=== PATIENT | female | born 1960 | race Caucasian/White ===

== ENCOUNTER 2018-03-07 12:26 | Emergency (ER) | payer OTHER ==
[~2018-03-07] VITALS: Ht 152.4 cm; Wt 80.0 kg
[~2018-03-07 12:26] MED LIST: ALPR-340 PO; AMIO100T4 PO; AMIO200T PO; ATOR20TA65; ATOR20TA65 PO; BENA20TA3 PO; BENA20TA77; CARV6.2548 PO; CLON0.5T PO; CLON1TAB4 PO; COR12 PO; DIGO250T81 PO; FERR325T30 PO; FURO-151 PO; FURO40TA5 PO; GLIP10TA10; GLIP10TA3 PO; IMIP50TA2; IMIP50TA7 PO; INS5050 SUBCUT; INSU100C3 SQ; LANS30CA55; LINA5TAB; LINA5TAB PO; NORG1TAB18 PO; NORG1TAB30 PO; NORT50CA; NORT50CA PO; NORT50CA5 PO; POTA20TA30; POTA20TA82 PO; TRAZ-129 PO; WARF-67; WARF2TAB57 PO
[2018-03-07] MEDS ORDERED: ONDANSETRON HCL 4MG/2ML VIAL IV STA (13:26)
[2018-03-07] MEDS ORDERED: SODIUM CHLORIDE 0.9% 250 ML IV ONE (13:41)
[2018-03-07 14:17] LABS: CLARITY URINE CLEAR (CLEAR); COLOR URINE YELLOW (YELLOW); KETONES URINE NEGATIVE (NEGATIVE); LEUKOCYTE ESTERASE URINE NEGATIVE (NEGATIVE); NITRITE URINE NEGATIVE (NEGATIVE); OCCULT BLOOD URINE NEGATIVE (NEGATIVE); PH URINE 7.5 (4.5-8.0); PROTEIN URINE NEGATIVE (NEGATIVE); SPECIFIC GRAVITY URINE 1.011 (1.005-1.030); UROBILINOGEN URINE 0.2 E.U./dL (0.2-1.0)
[2018-03-07 14:28] LABS: BASOPHILS % 0.3 % (0.0-2.0); HEMOGLOBIN. 11.9 g/dL (12.0-16.0); LYMPHOCYTES % 16.4 % (20.0-50.0); MEAN CORPUSCULAR HEMOGLOBIN 24.5 pg (28.0-32.0); MEAN CORPUSCULAR VOLUME 74.2 fL (81.0-99.0); MONOCYTES % 7.3 % (2.0-8.0); PLATELET 253 x1000/uL (130-400); RED BLOOD CELL COUNT 4.85 mill/uL (4.2-5.4); RED CELL DISTRIBUTION WIDTH 17.2 % (11.6-14.6)
[2018-03-07 14:31] LABS: CHLORIDE 106 mEq/L (98-107); INR 1.4; PROTHROMBIN TIME 14.6 sec (9.4-11.6)
[2018-03-07 14:40] LABS: CREATINE KINASE 45 IU/L (26-192)
[2018-03-07 17:24] VITALS: BP 118/58
== END 2018-03-07 17:25 | disposition home or self-care (01) ==
LOC: ER 12:33 → ENRESERV 14:14 → CANRESERV 14:14 → ER 17:25 → CANBEDREQ 17:58
DX: R53.1 Weakness (principal); E11.9 Type 2 diabetes mellitus without complications; I10 Essential (primary) hypertension; E78.00 Pure hypercholesterolemia, unspecified; Z95.0 Presence of cardiac pacemaker; Z79.4 Long term (current) use of insulin; Z79.01 Long term (current) use of anticoagulants
CPT/HCPCS: 36415; 71045; 80053; 81003; 82550; 83605; 83880; 84484; 85025; 85610; 87040; 87086; 93005; 96360; 96361; 99285; J2405; Z7610; J7050

== ENCOUNTER 2018-05-10 11:12 | Emergency (ER) | payer OTHER ==
[~2018-05-10] VITALS: Ht 154.9 cm; Wt 66.0 kg
[~2018-05-10 11:12] MED LIST changes: -CLON1TAB4 PO; +CLON1TAB5 PO
[2018-05-10 11:25] VITALS: BP 123/55
[2018-05-10 12:48] LABS: BASOPHILS % 0.4 % (0.0-2.0); EOSINOPHILS % 0.1 % (0.0-5.0); HEMATOCRIT. 36.2 % (36.0-48.0); HEMOGLOBIN. 11.8 g/dL (12.0-16.0); MEAN CORPUSCULAR HEMOGLOBIN 24.5 pg (28.0-32.0); MEAN CORPUSCULAR VOLUME 74.9 fL (81.0-99.0); MEAN PLATELET VOLUME 8.3 fl (7.4-10.4); MONOCYTES % 8.8 % (2.0-8.0); NEUTROPHILS % 69.7 % (40.0-76.0); PLATELET 217 x1000/uL (130-400); RED BLOOD CELL COUNT 4.83 mill/uL (4.2-5.4); RED CELL DISTRIBUTION WIDTH 17.6 % (11.6-14.6)
[2018-05-10 12:52] LABS: PROTHROMBIN TIME 20.7 sec (9.4-11.6)
== END 2018-05-10 13:44 | disposition home or self-care (01) ==
LOC: ER 11:12
DX: H60.92 Unspecified otitis externa, left ear (principal); E11.9 Type 2 diabetes mellitus without complications; I10 Essential (primary) hypertension; Z79.899 Other long term (current) drug therapy
CPT/HCPCS: 36415; 85025; 85610; 93005; 99285

== ENCOUNTER 2018-08-27 09:24 | Emergency (ER) | payer OTHER ==
[~2018-08-27] VITALS: Ht 154.9 cm; Wt 77.0 kg
[~2018-08-27 09:24] MED LIST changes: +BENA20TA10 PO; -BENA20TA3 PO; +CLON1TAB12 PO; -CLON1TAB5 PO; -TRAZ-129 PO; +TRAZ-212 PO
[2018-08-27 11:26] LABS: BASOPHILS % 0.6 % (0.0-2.0); HEMATOCRIT. 35.6 % (36.0-48.0); HEMOGLOBIN. 11.7 g/dL (12.0-16.0); LYMPHOCYTES % 21.4 % (20.0-50.0); MEAN CORPUSCULAR HEMOGLOBIN 24.4 pg (28.0-32.0); MEAN CORPUSCULAR VOLUME 74.4 fL (81.0-99.0); MEAN PLATELET VOLUME 8.3 fl (7.4-10.4); MONOCYTES % 7.9 % (2.0-8.0); NEUTROPHILS % 70.1 % (40.0-76.0); PLATELET 217 x1000/uL (130-400); RED BLOOD CELL COUNT 4.78 mill/uL (4.2-5.4); RED CELL DISTRIBUTION WIDTH 17.9 % (11.6-14.6)
[2018-08-27 11:33] LABS: INR 1.8; PROTHROMBIN TIME 17.6 sec (9.1-11.1)
[2018-08-27 11:34] LABS: CHLORIDE 109 mEq/L (98-107)
[2018-08-27 11:40] LABS: CLARITY URINE CLEAR (CLEAR); COLOR URINE YELLOW (YELLOW); KETONES URINE NEGATIVE (NEGATIVE); LEUKOCYTE ESTERASE URINE NEGATIVE (NEGATIVE); NITRITE URINE NEGATIVE (NEGATIVE); OCCULT BLOOD URINE NEGATIVE (NEGATIVE); PROTEIN URINE NEGATIVE (NEGATIVE); SPECIFIC GRAVITY URINE 1.011 (1.005-1.030)
[2018-08-27 15:09] VITALS: BP 116/64
== END 2018-08-27 15:12 | disposition home or self-care (01) ==
LOC: ER 11:14
DX: I10 Essential (primary) hypertension (principal); R53.1 Weakness; R51 Headache; R53.83 Other fatigue; E11.9 Type 2 diabetes mellitus without complications; E78.00 Pure hypercholesterolemia, unspecified; Z98.890 Other specified postprocedural states; Z79.4 Long term (current) use of insulin; Z79.899 Other long term (current) drug therapy
CPT/HCPCS: 36415; 71045; 83735; 83880; 84484; 93005; 99285

== ENCOUNTER 2018-09-03 11:43 | Inpatient (IN) | payer OTHER ==
[~2018-09-03] VITALS: Ht 162.6 cm; Wt 84.8 kg
[2018-09-03 12:40] LABS: BASOPHILS % 0.5 % (0.0-2.0); HEMATOCRIT. 35.5 % (36.0-48.0); HEMOGLOBIN. 11.7 g/dL (12.0-16.0); LYMPHOCYTES % 17.5 % (20.0-50.0); MEAN CORPUSCULAR HEMOGLOBIN 24.5 pg (28.0-32.0); MEAN CORPUSCULAR VOLUME 74.4 fL (81.0-99.0); MEAN PLATELET VOLUME 8.2 fl (7.4-10.4); MONOCYTES % 7.8 % (2.0-8.0); NEUTROPHILS % 74.2 % (40.0-76.0); PLATELET 219 x1000/uL (130-400); RED BLOOD CELL COUNT 4.77 mill/uL (4.2-5.4); RED CELL DISTRIBUTION WIDTH 18.1 % (11.6-14.6)
[2018-09-03 12:48] LABS: CHLORIDE 105 mEq/L (98-107)
[2018-09-03 12:53] LABS: INR 3.8; PROTHROMBIN TIME 37.2 sec (9.1-11.1)
[2018-09-03] MEDS ORDERED: ACETAMINOPHEN 325MG TABLET PO PRN (13:45)
[2018-09-03] MEDS ORDERED: ONDANSETRON HCL 4MG/2ML INJ IV PRN (13:45)
[2018-09-03] MEDS ORDERED: DEXTROSE 50% WATER 50ML SYRINGE IV PRN (13:45)
[2018-09-03 14:19] LABS: CREATINE KINASE 50 IU/L (26-192); CREATINE KINASE MB FRACTION < 1.0 ng/mL (0.5-3.6); HDL CHOLESTEROL 53 mg/dL (40-59); LDL CHOLESTEROL 41 mg/dL (5-100)
[2018-09-03 16:06] LABS: CLARITY URINE CLEAR (CLEAR); COLOR URINE YELLOW (YELLOW); KETONES URINE NEGATIVE (NEGATIVE); LEUKOCYTE ESTERASE URINE NEGATIVE (NEGATIVE); NITRITE URINE NEGATIVE (NEGATIVE); OCCULT BLOOD URINE NEGATIVE (NEGATIVE); PH URINE 7.5 (4.5-8.0); PROTEIN URINE NEGATIVE (NEGATIVE); SPECIFIC GRAVITY URINE 1.007 (1.005-1.030); UROBILINOGEN URINE 0.2 E.U./dL (0.2-1.0)
[2018-09-03] MEDS: CARVEDILOL 6.25 MG TABLET PO SCH (17:00)
[2018-09-03] MEDS: BLOOD SUGAR DIAGNOSTIC STRIP TEST SCH ×2 (17:00→23:53)
[2018-09-03] MEDS: INSULIN LISPRO 100 UNITS/ML SUBCUT SCH ×2 (17:13→23:53)
[2018-09-03 20:17] VITALS: BP 132/54
[2018-09-03] MEDS: ATORVASTATIN CALCIUM 20MG TABLET PO SCH (23:53)
[2018-09-04] VITALS (7 sets, daily range): BP systolic 104–131; BP diastolic 42–59
[2018-09-04] MEDS ORDERED: FURO20TA4 PO (05:13)
[2018-09-04] MEDS ORDERED: AMLO10TA4 PO (05:34)
[2018-09-04] MEDS ORDERED: VALS160T2 PO (05:34)
[2018-09-04] MEDS ORDERED: AMLO5TAB4 PO (05:34)
[2018-09-04] MEDS: INSULIN LISPRO 100 UNITS/ML SUBCUT SCH ×4 (06:27→20:43)
[2018-09-04] MEDS: BLOOD SUGAR DIAGNOSTIC STRIP TEST SCH ×4 (06:27→20:43)
[2018-09-04 07:47] LABS: BASOPHILS % 0.4 % (0.0-2.0); EOSINOPHILS % 0.1 % (0.0-5.0); HEMATOCRIT. 36.7 % (36.0-48.0); HEMOGLOBIN. 11.9 g/dL (12.0-16.0); LYMPHOCYTES % 25.6 % (20.0-50.0); MEAN CORPUSCULAR HEMOGLOBIN 24.1 pg (28.0-32.0); MEAN CORPUSCULAR VOLUME 74.4 fL (81.0-99.0); MEAN PLATELET VOLUME 8.5 fl (7.4-10.4); NEUTROPHILS % 64.9 % (40.0-76.0); PLATELET 223 x1000/uL (130-400); RED BLOOD CELL COUNT 4.93 mill/uL (4.2-5.4); RED CELL DISTRIBUTION WIDTH 18.2 % (11.6-14.6)
[2018-09-04 07:57] LABS: CHLORIDE 108 mEq/L (98-107)
[2018-09-04] MEDS: CARVEDILOL 6.25 MG TABLET PO SCH ×2 (09:21→18:32)
[2018-09-04] MEDS: FUROSEMIDE 40MG TABLET PO SCH (09:21)
[2018-09-04] MEDS: POTASSIUM CHLORIDE 10MEQ TABLET SR PO SCH (09:21)
[2018-09-04] MEDS: AMIODARONE HCL 200 MG TABLET PO SCH (09:25)
[2018-09-04] MEDS: ATORVASTATIN CALCIUM 20MG TABLET PO SCH (20:47)
[2018-09-05 00:13] VITALS: BP 117/53
[2018-09-05 04:00] VITALS: BP 111/53
[2018-09-05] MEDS: BLOOD SUGAR DIAGNOSTIC STRIP TEST SCH ×2 (07:40→12:56)
[2018-09-05 08:00] VITALS: BP 111/66
[2018-09-05 08:00] LABS: BASOPHILS % 0.6 % (0.0-2.0); HEMOGLOBIN. 11.9 g/dL (12.0-16.0); LYMPHOCYTES % 27.1 % (20.0-50.0); MEAN CORPUSCULAR HEMOGLOBIN 24.4 pg (28.0-32.0); MEAN PLATELET VOLUME 8.5 fl (7.4-10.4); MONOCYTES % 9.2 % (2.0-8.0); NEUTROPHILS % 63.1 % (40.0-76.0); PLATELET 223 x1000/uL (130-400); RED BLOOD CELL COUNT 4.87 mill/uL (4.2-5.4); RED CELL DISTRIBUTION WIDTH 17.8 % (11.6-14.6)
[2018-09-05 08:35] LABS: CHLORIDE 107 mEq/L (98-107)
[2018-09-05] MEDS: FUROSEMIDE 40MG TABLET PO SCH (08:45)
[2018-09-05] MEDS: POTASSIUM CHLORIDE 10MEQ TABLET SR PO SCH (08:45)
[2018-09-05] MEDS: AMIODARONE HCL 200 MG TABLET PO SCH (08:45)
[2018-09-05] MEDS: CARVEDILOL 6.25 MG TABLET PO SCH (08:46)
[2018-09-05] MEDS: INSULIN LISPRO 100 UNITS/ML SUBCUT SCH ×2 (08:47→13:02)
[2018-09-05 12:00] VITALS: BP 123/53
[2018-09-05 12:41] VITALS: BP 123/53
== END 2018-09-05 13:45 | disposition home or self-care (01) | DRG 48 ==
LOC: ER 11:43 → 7WST 12:22 → EDBEDREQ 13:43 → ENRESERV 19:22
PROVIDERS: ADMIT Internal Medicine; ATTEND Internal Medicine
PROC: 4B02XTZ Measurement of Cardiac Defibrillator, External Approach (ICD-10-PCS; principal; 2018-09-04)
DX: G90.8 Other disorders of autonomic nervous system (principal); D68.59 Other primary thrombophilia; E44.1 Mild protein-calorie malnutrition; I36.1 Nonrheumatic tricuspid (valve) insufficiency; I11.0 Hypertensive heart disease with heart failure; I50.9 Heart failure, unspecified; I42.9 Cardiomyopathy, unspecified; I48.0 Paroxysmal atrial fibrillation; I45.10 Unspecified right bundle-branch block; E78.5 Hyperlipidemia, unspecified; D64.9 Anemia, unspecified; E11.9 Type 2 diabetes mellitus without complications; E66.9 Obesity, unspecified; I49.5 Sick sinus syndrome; T45.515A Adverse effect of anticoagulants, initial encounter; E78.00 Pure hypercholesterolemia, unspecified; Z79.4 Long term (current) use of insulin; Z95.810 Presence of automatic (implantable) cardiac defibrillator; Z79.01 Long term (current) use of anticoagulants; Z79.899 Other long term (current) drug therapy; Z95.2 Presence of prosthetic heart valve; Z68.32 Body mass index [BMI] 32.0-32.9, adult; Y92.89 Other specified places as the place of occurrence of the external cause
CPT/HCPCS: 36415; 71045; 80048; 80061; 82550; 82553; 82962; 83036; 83605; 83735; 83880; 84443; 84484; 93005; 93306; 93880; 93970; 97162; 99285; J1815

== ENCOUNTER 2019-02-23 17:13 | Inpatient (IN) | payer OTHER ==
[~2019-02-23] VITALS: Ht 162.6 cm; Wt 79.9 kg
[~2019-02-23 17:13] MED LIST changes: -ALPR-340 PO; -AMIO100T4 PO; -AMIO200T PO; +AMLO10TA4 PO; +AMLO5TAB4 PO; -ATOR20TA65; -BENA20TA10 PO; -BENA20TA77; -CARV6.2548 PO; -CLON0.5T PO; -CLON1TAB12 PO; -DIGO250T81 PO; -FERR325T30 PO; +FURO20TA4 PO; -FURO40TA5 PO; -GLIP10TA10; -IMIP50TA2; -INS5050 SUBCUT; -LANS30CA55; -LINA5TAB; -NORG1TAB18 PO; -NORG1TAB30 PO; -NORT50CA; -NORT50CA PO; -POTA20TA30; +VALS160T2 PO; -WARF-67
[2019-02-23] MEDS ORDERED: ALBUTEROL (0.083%) 2.5MG/3ML NEB HHN STA (17:45)
[2019-02-23] MEDS ORDERED: IPRATROPIUM BROMIDE (0.02%) 0.5MG/2.5ML NEB HHN STA (17:45)
[2019-02-23] MEDS ORDERED: FUROSEMIDE 40MG/4ML VIAL IVP ONE (17:45)
[2019-02-23 18:13] LABS: BASOPHILS % 0.4 % (0.0-2.0); HEMATOCRIT. 38.4 % (36.0-48.0); HEMOGLOBIN. 12.5 g/dL (12.0-16.0); LYMPHOCYTES % 17.2 % (20.0-50.0); MEAN CORPUSCULAR HEMOGLOBIN 24.4 pg (28.0-32.0); MEAN CORPUSCULAR VOLUME 75.4 fL (81.0-99.0); MEAN PLATELET VOLUME 8.4 fl (7.4-10.4); MONOCYTES % 10.2 % (2.0-8.0); NEUTROPHILS % 72.2 % (40.0-76.0); PLATELET 239 x1000/uL (130-400); RED CELL DISTRIBUTION WIDTH 18.8 % (11.6-14.6)
[2019-02-23 18:14] LABS: CHLORIDE 111 mEq/L (98-107)
[2019-02-23 18:21] LABS: PARTIAL THROMBOPLASTIN TIME 66.7 sec (23.4-31.0); PROTHROMBIN TIME 44.3 sec (9.6-11.0)
[2019-02-23 18:25] LABS: INR 4.6
[2019-02-23 18:26] LABS: BG BASE EXCESS 0.2 mmol/L (-2.0-2.0); BG CARBOXYHEMOGLOBIN 0.5 % (0.5-1.5); BG DEOXYHEMOGLOBIN 4.1 % (0.0-5.0); BG HCO3 ACT 24.5 mmol/L (22.0-26.0); BG METHEMOGLOBIN 0.6 % (0.0-1.5); BG OXYGEN SATURATION 95.9 % (92.0-98.5); BG OXYHEMOGLOBIN 94.8 % (94.0-97.0); BG PCO2 38.5 mmHg (35.0-45.0); BG PH 7.422 (7.350-7.450); BG PO2 83.7 mmHg (75.0-100.0); BG SAMPLE SITE RIGHT RADIAL; BG TOTAL HEMOGLOBIN 13.1 g/dL (12.0-18.0)
[2019-02-23] MEDS ORDERED: LEVOFLOXACIN 500MG PREMIX 100 ML IV ONE (18:30)
[2019-02-23 20:40] VITALS: BP 103/65
[2019-02-23 21:00] VITALS: BP 103/65
[2019-02-23 22:00] VITALS: BP 110/78
[2019-02-23] MEDS ORDERED: DEXTROSE 50% WATER 50ML SYRINGE IV PRN (22:00)
[2019-02-23] MEDS ORDERED: INSULIN GLARGINE UD 100 UNITS/ML SYR SUBCUT SCH (22:00)
[2019-02-23] MEDS ORDERED: NON FORMULARY PATIENT HOME MED XX SCH (22:00)
[2019-02-23] MEDS ORDERED: CARVEDILOL 12.5MG TABLET PO NR (22:30)
[2019-02-23] MEDS: INSULIN GLARGINE UD 100 UNITS/ML SYR SUBCUT SCH (23:04)
[2019-02-24] VITALS (12 sets, daily range): BP systolic 97–119; BP diastolic 55–74
[2019-02-24 06:10] LABS: PROTHROMBIN TIME 46.6 sec (9.6-11.0)
[2019-02-24] MEDS: BLOOD SUGAR DIAGNOSTIC STRIP TEST SCH ×4 (06:45→20:35)
[2019-02-24] MEDS ORDERED: BLOOD SUGAR DIAGNOSTIC STRIP TEST SCH (06:50)
[2019-02-24] MEDS: INSULIN LISPRO 100 UNITS/ML SUBCUT SCH ×4 (07:20→20:35)
[2019-02-24 07:49] LABS: INR 4.8
[2019-02-24] MEDS: FUROSEMIDE 40MG/4ML VIAL IVP SCH ×2 (08:44→17:10)
[2019-02-24] MEDS: POTASSIUM CHLORIDE 20MEQ TABLET SR PO SCH (08:46)
[2019-02-24] MEDS ORDERED: LOSARTAN POTASSIUM 100 MG TABLET PO SCH (09:00)
[2019-02-24] MEDS ORDERED: CARVEDILOL 12.5MG TABLET PO SCH (09:00)
[2019-02-24] MEDS ORDERED: IPRATROPIUM/ALBUTEROL 0.5-3(2.5)MG/3ML NEB HHN PRN (09:15)
[2019-02-24] MEDS ORDERED: ONDANSETRON HCL 4MG/2ML INJ IV PRN (10:15)
[2019-02-24] MEDS ORDERED: ACETAMINOPHEN 325MG TABLET PO PRN (10:15)
[2019-02-24] MEDS: AZITHROMYCIN 500 MG TABLET PO SCH (11:21)
[2019-02-24] MEDS: CEFTRIAXONE 1 G PREMIX 50 ML IV SCH (12:59)
[2019-02-24] MEDS ORDERED: IPRATROPIUM BROMIDE (0.02%) 0.5MG/2.5ML NEB HHN PRN (14:45)
[2019-02-24] MEDS: NEBIVOLOL HCL 5 MG TABLET PO SCH (17:10)
[2019-02-24] MEDS: GUAIFENESIN 600MG ER TABLET PO SCH (20:34)
[2019-02-24] MEDS: TRAZODONE HCL 50MG TABLET PO SCH (20:34)
[2019-02-24] MEDS: NORTRIPTYLINE HCL 25MG CAPSULE PO SCH (20:35)
[2019-02-24] MEDS ORDERED: METOPROLOL TARTRATE 25MG TABLET PO SCH (21:00)
[2019-02-24] MEDS: INSULIN GLARGINE UD 100 UNITS/ML SYR SUBCUT SCH (22:00)
[2019-02-25] VITALS (15 sets, daily range): BP systolic 92–123; BP diastolic 45–80
[2019-02-25] MEDS: IPRATROPIUM BROMIDE (0.02%) 0.5MG/2.5ML NEB HHN SCH ×6 (00:30→21:08)
[2019-02-25] MEDS: BLOOD SUGAR DIAGNOSTIC STRIP TEST SCH ×4 (06:24→21:00)
[2019-02-25] MEDS: INSULIN LISPRO 100 UNITS/ML SUBCUT SCH ×4 (06:28→21:12)
[2019-02-25 06:52] LABS: D-DIMER 0.21 mg/L FEU (<0.50); INR 2.8; PROTHROMBIN TIME 27.1 sec (9.6-11.0)
[2019-02-25 06:58] LABS: BASOPHILS % 0.3 % (0.0-2.0); HEMATOCRIT. 35.7 % (36.0-48.0); HEMOGLOBIN. 11.5 g/dL (12.0-16.0); LYMPHOCYTES % 23.7 % (20.0-50.0); MEAN CORPUSCULAR HEMOGLOBIN 24.2 pg (28.0-32.0); MEAN CORPUSCULAR VOLUME 74.7 fL (81.0-99.0); MEAN PLATELET VOLUME 8.7 fl (7.4-10.4); MONOCYTES % 9.4 % (2.0-8.0); NEUTROPHILS % 66.6 % (40.0-76.0); PLATELET 226 x1000/uL (130-400); RED BLOOD CELL COUNT 4.78 mill/uL (4.2-5.4); RED CELL DISTRIBUTION WIDTH 18.5 % (11.6-14.6)
[2019-02-25 07:24] LABS: CHLORIDE 109 mEq/L (98-107)
[2019-02-25] MEDS: FUROSEMIDE 40MG/4ML VIAL IVP SCH ×2 (08:26→17:51)
[2019-02-25] MEDS: AZITHROMYCIN 500 MG TABLET PO SCH (08:26)
[2019-02-25] MEDS: POTASSIUM CHLORIDE 20MEQ TABLET SR PO SCH (08:26)
[2019-02-25] MEDS: GUAIFENESIN 600MG ER TABLET PO SCH ×2 (08:26→21:13)
[2019-02-25] MEDS: LOSARTAN POTASSIUM 25 MG TABLET PO SCH (08:28)
[2019-02-25] MEDS: NEBIVOLOL HCL 5 MG TABLET PO SCH ×2 (08:28→21:16)
[2019-02-25] MEDS ORDERED: DIGOXIN 500MCG/2ML AMP IV PRN (11:00)
[2019-02-25] MEDS: CEFTRIAXONE 1 G PREMIX 50 ML IV SCH (12:01)
[2019-02-25] MEDS ORDERED: WARFARIN SODIUM 2MG TABLET PO NR (18:00)
[2019-02-25] MEDS: INSULIN GLARGINE UD 100 UNITS/ML SYR SUBCUT SCH (21:13)
[2019-02-25] MEDS: NORTRIPTYLINE HCL 25MG CAPSULE PO SCH (21:16)
[2019-02-25] MEDS: TRAZODONE HCL 50MG TABLET PO SCH (21:22)
[2019-02-26] VITALS (12 sets, daily range): BP systolic 87–143; BP diastolic 32–81
[2019-02-26] MEDS: IPRATROPIUM BROMIDE (0.02%) 0.5MG/2.5ML NEB HHN SCH ×6 (00:29→20:18)
[2019-02-26 06:33] LABS: BASOPHILS % 0.4 % (0.0-2.0); EOSINOPHILS % 0.1 % (0.0-5.0); HEMATOCRIT. 36.4 % (36.0-48.0); HEMOGLOBIN. 11.8 g/dL (12.0-16.0); LYMPHOCYTES % 21.8 % (20.0-50.0); MEAN CORPUSCULAR HEMOGLOBIN 24.4 pg (28.0-32.0); MEAN CORPUSCULAR VOLUME 75.4 fL (81.0-99.0); MEAN PLATELET VOLUME 8.6 fl (7.4-10.4); MONOCYTES % 9.3 % (2.0-8.0); NEUTROPHILS % 68.4 % (40.0-76.0); PLATELET 226 x1000/uL (130-400); RED BLOOD CELL COUNT 4.83 mill/uL (4.2-5.4); RED CELL DISTRIBUTION WIDTH 18.6 % (11.6-14.6)
[2019-02-26] MEDS: BLOOD SUGAR DIAGNOSTIC STRIP TEST SCH ×4 (06:50→21:37)
[2019-02-26 06:51] LABS: INR 1.9; PROTHROMBIN TIME 19.1 sec (9.6-11.0)
[2019-02-26 07:20] LABS: CHLORIDE 110 mEq/L (98-107)
[2019-02-26] MEDS: INSULIN LISPRO 100 UNITS/ML SUBCUT SCH ×4 (07:20→21:00)
[2019-02-26] MEDS: AZITHROMYCIN 500 MG TABLET PO SCH (08:32)
[2019-02-26] MEDS: FUROSEMIDE 40MG/4ML VIAL IVP SCH ×2 (08:32→17:10)
[2019-02-26] MEDS: POTASSIUM CHLORIDE 20MEQ TABLET SR PO SCH (08:32)
[2019-02-26] MEDS: NEBIVOLOL HCL 5 MG TABLET PO SCH ×2 (08:32→21:36)
[2019-02-26] MEDS: LOSARTAN POTASSIUM 25 MG TABLET PO SCH (08:32)
[2019-02-26] MEDS: GUAIFENESIN 600MG ER TABLET PO SCH ×2 (08:32→21:37)
[2019-02-26] MEDS: CEFTRIAXONE 1 G PREMIX 50 ML IV SCH (17:10)
[2019-02-26] MEDS: ENOXAPARIN 60MG/0.6ML SYR SUBCUT SCH ×2 (17:11→21:35)
[2019-02-26] MEDS ORDERED: WARFARIN SODIUM 5MG TABLET PO NR (18:00)
[2019-02-26] MEDS: NORTRIPTYLINE HCL 25MG CAPSULE PO SCH (21:37)
[2019-02-26] MEDS: TRAZODONE HCL 50MG TABLET PO SCH (21:37)
[2019-02-26] MEDS: INSULIN GLARGINE UD 100 UNITS/ML SYR SUBCUT SCH (21:40)
[2019-02-26] MEDS ORDERED: IOHEXOL-350 100 ML BOTTLE ONE (23:03)
[2019-02-27] VITALS (12 sets, daily range): BP systolic 98–119; BP diastolic 54–81
[2019-02-27] MEDS: IPRATROPIUM BROMIDE (0.02%) 0.5MG/2.5ML NEB HHN SCH ×6 (00:05→20:50)
[2019-02-27 06:51] LABS: INR 2.1; PROTHROMBIN TIME 21.3 sec (9.6-11.0)
[2019-02-27 06:53] LABS: BASOPHILS % 0.5 % (0.0-2.0); EOSINOPHILS % 0.1 % (0.0-5.0); HEMATOCRIT. 35.5 % (36.0-48.0); HEMOGLOBIN. 11.4 g/dL (12.0-16.0); LYMPHOCYTES % 23.2 % (20.0-50.0); MEAN CORPUSCULAR HEMOGLOBIN 24.3 pg (28.0-32.0); MEAN CORPUSCULAR VOLUME 75.6 fL (81.0-99.0); MEAN PLATELET VOLUME 8.6 fl (7.4-10.4); MONOCYTES % 10.1 % (2.0-8.0); NEUTROPHILS % 66.1 % (40.0-76.0); PLATELET 216 x1000/uL (130-400); RED BLOOD CELL COUNT 4.69 mill/uL (4.2-5.4)
[2019-02-27] MEDS: INSULIN LISPRO 100 UNITS/ML SUBCUT SCH ×4 (07:20→21:53)
[2019-02-27] MEDS: BLOOD SUGAR DIAGNOSTIC STRIP TEST SCH ×4 (07:23→21:54)
[2019-02-27 07:41] LABS: CHLORIDE 110 mEq/L (98-107)
[2019-02-27] MEDS: ENOXAPARIN 60MG/0.6ML SYR SUBCUT SCH ×2 (09:45→21:51)
[2019-02-27] MEDS ORDERED: POTASSIUM CHLORIDE 20MEQ TABLET SR PO SCH (09:45)
[2019-02-27] MEDS: GUAIFENESIN 600MG ER TABLET PO SCH ×2 (09:45→21:45)
[2019-02-27] MEDS: AZITHROMYCIN 500 MG TABLET PO SCH (09:49)
[2019-02-27] MEDS: FUROSEMIDE 40MG/4ML VIAL IVP SCH ×2 (09:49→18:54)
[2019-02-27] MEDS: LOSARTAN POTASSIUM 25 MG TABLET PO SCH (09:49)
[2019-02-27] MEDS: NEBIVOLOL HCL 5 MG TABLET PO SCH ×3 (10:00→21:51)
[2019-02-27] MEDS: CEFTRIAXONE 1 G PREMIX 50 ML IV SCH (12:50)
[2019-02-27] MEDS ORDERED: LIDOCAINE HCL/PF 1% 2ML VIAL ONE (13:08)
[2019-02-27] MEDS ORDERED: WARFARIN SODIUM 3MG TABLET PO NR (18:00)
[2019-02-27] MEDS: POTASSIUM CHLORIDE 20MEQ TABLET SR PO SCH (18:54)
[2019-02-27] MEDS: TRAZODONE HCL 50MG TABLET PO SCH (21:51)
[2019-02-27] MEDS: NORTRIPTYLINE HCL 25MG CAPSULE PO SCH (21:51)
[2019-02-27] MEDS: INSULIN GLARGINE UD 100 UNITS/ML SYR SUBCUT SCH (21:54)
[2019-02-28] VITALS (13 sets, daily range): BP systolic 95–115; BP diastolic 44–81
[2019-02-28] MEDS: IPRATROPIUM BROMIDE (0.02%) 0.5MG/2.5ML NEB HHN SCH ×6 (00:22→20:40)
[2019-02-28] MEDS: NEBIVOLOL HCL 5 MG TABLET PO SCH ×3 (06:00→23:39)
[2019-02-28] MEDS: BLOOD SUGAR DIAGNOSTIC STRIP TEST SCH ×4 (06:50→20:44)
[2019-02-28] MEDS: INSULIN LISPRO 100 UNITS/ML SUBCUT SCH ×4 (07:20→20:44)
[2019-02-28 07:23] LABS: EOSINOPHILS % 0.1 % (0.0-5.0); HEMATOCRIT. 37.1 % (36.0-48.0); HEMOGLOBIN. 11.8 g/dL (12.0-16.0); LYMPHOCYTES % 23.1 % (20.0-50.0); MEAN CORPUSCULAR HEMOGLOBIN 24.3 pg (28.0-32.0); MEAN CORPUSCULAR VOLUME 76.1 fL (81.0-99.0); MEAN PLATELET VOLUME 9.6 fl (7.4-10.4); MONOCYTES % 10.4 % (2.0-8.0); NEUTROPHILS % 65.4 % (40.0-76.0); PLATELET 204 x1000/uL (130-400); RED BLOOD CELL COUNT 4.87 mill/uL (4.2-5.4); RED CELL DISTRIBUTION WIDTH 18.8 % (11.6-14.6)
[2019-02-28 07:31] LABS: INR 3.4; PROTHROMBIN TIME 33.4 sec (9.6-11.0)
[2019-02-28 07:32] LABS: CHLORIDE 112 mEq/L (98-107)
[2019-02-28] MEDS: POTASSIUM CHLORIDE 20MEQ TABLET SR PO SCH ×2 (09:32→18:25)
[2019-02-28] MEDS: LOSARTAN POTASSIUM 25 MG TABLET PO SCH (09:32)
[2019-02-28] MEDS: AZITHROMYCIN 500 MG TABLET PO SCH (09:32)
[2019-02-28] MEDS: GUAIFENESIN 600MG ER TABLET PO SCH ×2 (09:32→20:25)
[2019-02-28] MEDS: FUROSEMIDE 40MG/4ML VIAL IVP SCH ×2 (09:33→18:25)
[2019-02-28] MEDS: ENOXAPARIN 60MG/0.6ML SYR SUBCUT SCH (09:33)
[2019-02-28] MEDS: CEFTRIAXONE 1 G PREMIX 50 ML IV SCH (12:15)
[2019-02-28] MEDS: LEVOFLOXACIN 250MG TABLET PO SCH (15:22)
[2019-02-28 16:36] LABS: BG BASE EXCESS 1.4 mmol/L (-2.0-2.0); BG CARBOXYHEMOGLOBIN 0.1 % (0.5-1.5); BG DEOXYHEMOGLOBIN 11.9 % (0.0-5.0); BG FRACTION INSPIRED OXYGEN 21; BG HCO3 ACT 25.5 mmol/L (22.0-26.0); BG METHEMOGLOBIN 0.2 % (0.0-1.5); BG OXYGEN SATURATION 88.1 % (92.0-98.5); BG OXYHEMOGLOBIN 87.8 % (94.0-97.0); BG PCO2 38.4 mmHg (35.0-45.0); BG PO2 54.7 mmHg (75.0-100.0); BG SAMPLE SITE RIGHT RADIAL; BG TOTAL HEMOGLOBIN 12.5 g/dL (12.0-18.0); BG VENT MODE ROOM AIR
[2019-02-28] MEDS: TRAZODONE HCL 50MG TABLET PO SCH (20:25)
[2019-02-28] MEDS: NORTRIPTYLINE HCL 25MG CAPSULE PO SCH (20:25)
[2019-02-28] MEDS: INSULIN GLARGINE UD 100 UNITS/ML SYR SUBCUT SCH (23:38)
[2019-03-01] VITALS (9 sets, daily range): BP systolic 95–121; BP diastolic 70–94
[2019-03-01] MEDS: IPRATROPIUM BROMIDE (0.02%) 0.5MG/2.5ML NEB HHN SCH ×4 (00:51→12:36)
[2019-03-01] MEDS: BLOOD SUGAR DIAGNOSTIC STRIP TEST SCH ×2 (06:45→11:50)
[2019-03-01] MEDS: NEBIVOLOL HCL 5 MG TABLET PO SCH (06:45)
[2019-03-01] MEDS: INSULIN LISPRO 100 UNITS/ML SUBCUT SCH ×2 (06:45→13:13)
[2019-03-01 07:32] LABS: INR 2.9; PROTHROMBIN TIME 28.7 sec (9.6-11.0)
[2019-03-01 07:45] LABS: BASOPHILS % 0.4 % (0.0-2.0); HEMATOCRIT. 37.4 % (36.0-48.0); LYMPHOCYTES % 20.4 % (20.0-50.0); MEAN CORPUSCULAR HEMOGLOBIN 24.4 pg (28.0-32.0); MEAN PLATELET VOLUME 8.7 fl (7.4-10.4); MONOCYTES % 8.2 % (2.0-8.0); PLATELET 226 x1000/uL (130-400); RED BLOOD CELL COUNT 4.93 mill/uL (4.2-5.4); RED CELL DISTRIBUTION WIDTH 18.8 % (11.6-14.6)
[2019-03-01 08:00] LABS: CHLORIDE 109 mEq/L (98-107)
[2019-03-01] MEDS: GUAIFENESIN 600MG ER TABLET PO SCH (08:43)
[2019-03-01] MEDS: POTASSIUM CHLORIDE 20MEQ TABLET SR PO SCH (08:43)
[2019-03-01] MEDS: LOSARTAN POTASSIUM 25 MG TABLET PO SCH (08:43)
[2019-03-01] MEDS: FUROSEMIDE 40MG/4ML VIAL IVP SCH (08:43)
[2019-03-01] MEDS ORDERED: SPIRONOLACTONE 25MG TABLET PO SCH (09:30)
[2019-03-01] MEDS ORDERED: POTASSIUM CHLORIDE 20MEQ TABLET SR PO SCH (13:00)
[2019-03-01] MEDS: LEVOFLOXACIN 250MG TABLET PO SCH (13:12)
[2019-03-01] MEDS ORDERED: WARFARIN SODIUM 3MG TABLET PO NR (18:00)
[2019-03-01] MEDS ORDERED: NEBIVOLOL HCL 5 MG TABLET PO SCH (21:00)
[2019-03-02] MEDS ORDERED: LOSARTAN POTASSIUM 50 MG TABLET PO SCH (09:00)
== END 2019-03-01 16:26 | disposition home or self-care (01) | DRG 133 ==
LOC: ER 17:13 → EDBEDREQ 18:41 → 3WST 19:33 → ENRESERV 19:58 → 3WST 20:54
PROVIDERS: ADMIT Internal Medicine; ATTEND Internal Medicine
PROC: 4B02XSZ Measurement of Cardiac Pacemaker, External Approach (ICD-10-PCS; principal; 2019-02-27)
DX: J96.01 Acute respiratory failure with hypoxia (principal); I50.43 Acute on chronic combined systolic (congestive) and diastolic (congestive) heart failure; J18.1 Lobar pneumonia, unspecified organism; E87.8 Other disorders of electrolyte and fluid balance, not elsewhere classified; D68.9 Coagulation defect, unspecified; I95.9 Hypotension, unspecified; E44.1 Mild protein-calorie malnutrition; I11.0 Hypertensive heart disease with heart failure; I42.0 Dilated cardiomyopathy; R65.10 Systemic inflammatory response syndrome (SIRS) of non-infectious origin without acute organ dysfunction; E11.9 Type 2 diabetes mellitus without complications; E66.9 Obesity, unspecified; E78.5 Hyperlipidemia, unspecified; D72.821 Monocytosis (symptomatic); E78.00 Pure hypercholesterolemia, unspecified; I05.9 Rheumatic mitral valve disease, unspecified; T45.515A Adverse effect of anticoagulants, initial encounter; I48.0 Paroxysmal atrial fibrillation; I48.92 Unspecified atrial flutter; I49.5 Sick sinus syndrome; Z79.01 Long term (current) use of anticoagulants; Z79.899 Other long term (current) drug therapy; Z95.2 Presence of prosthetic heart valve; Z95.810 Presence of automatic (implantable) cardiac defibrillator; Y92.89 Other specified places as the place of occurrence of the external cause; Z71.3 Dietary counseling and surveillance; Z68.30 Body mass index [BMI] 30.0-30.9, adult
CPT/HCPCS: 36415; 36600; 71045; 71275; 80048; 82375; 82805; 82962; 83605; 83735; 83880; 84145; 84443; 84484; 85379; 93005; 93306; 93970; 96374; 99285; J0696; J1650; J1815; J1940; J1956; J3490; J7050; J7611; Q9967

== ENCOUNTER 2019-03-03 08:47 | Emergency (ER) | payer OTHER ==
[~2019-03-03] VITALS: Ht 162.6 cm; Wt 70.0 kg
[~2019-03-03 08:47] MED LIST changes: -AMLO10TA4 PO; -AMLO5TAB4 PO; -COR12 PO; -FURO20TA4 PO
[2019-03-03] MEDS ORDERED: SODIUM CHLORIDE 0.9% 1,000 ML IV ONE (09:31)
[2019-03-03 09:52] LABS: BASOPHILS % 0.3 % (0.0-2.0); HEMOGLOBIN. 12.1 g/dL (12.0-16.0); MEAN CORPUSCULAR HEMOGLOBIN 24.3 pg (28.0-32.0); MEAN PLATELET VOLUME 8.3 fl (7.4-10.4); MONOCYTES % 10.7 % (2.0-8.0); PLATELET 214 x1000/uL (130-400); RED CELL DISTRIBUTION WIDTH 19.9 % (11.6-14.6)
[2019-03-03 09:59] LABS: CHLORIDE 112 mEq/L (98-107)
[2019-03-03 10:01] LABS: INR 2.1; PARTIAL THROMBOPLASTIN TIME 42.9 sec (23.4-31.0); PROTHROMBIN TIME 20.7 sec (9.6-11.0)
[2019-03-03] MEDS ORDERED: FUROSEMIDE 40MG/4ML VIAL IVP ONE (11:45)
[2019-03-03 12:56] LABS: CLARITY URINE CLEAR (CLEAR); COLOR URINE YELLOW (YELLOW); KETONES URINE NEGATIVE (NEGATIVE); LEUKOCYTE ESTERASE URINE TRACE (NEGATIVE); NITRITE URINE NEGATIVE (NEGATIVE); OCCULT BLOOD URINE NEGATIVE (NEGATIVE); PH URINE 6.5 (4.5-8.0); PROTEIN URINE NEGATIVE (NEGATIVE); UROBILINOGEN URINE 0.2 E.U./dL (0.2-1.0)
[2019-03-03 15:10] VITALS: BP 100/69
== END 2019-03-03 15:48 | disposition short-term general hospital (02) ==
LOC: ER 08:47
DX: R06.02 Shortness of breath (principal); R53.1 Weakness; I11.0 Hypertensive heart disease with heart failure; Z87.01 Personal history of pneumonia (recurrent)
CPT/HCPCS: 36415; 71045; 80053; 81003; 83605; 83880; 84484; 85025; 85610; 85730; 87040; 93005; 96374; 99285; J1940; J7030; Z7610

== ENCOUNTER 2023-12-19 12:11 | Emergency (ER) | payer MEDICAID, OTHER ==
[~2023-12-19] VITALS: Ht 165.1 cm; Wt 86.5 kg
[~2023-12-19 12:11] MED LIST changes: +CARV25TA47 MT; +INSU100I28 SQ; +MECL-299 MT; +PANT40TA51 MT; +POTA-205 PO; -POTA20TA82 PO; +SACU1TAB4 MT; +SEMA0.258; -TRAZ-212 PO; +TRAZ-251 PO
[2023-12-19 12:19] VITALS: O2SAT 99
[2023-12-19 13:40] LABS: BASOPHILS % 0.5 % (0.0-2.0); EOSINOPHILS % 0.1 % (0.0-5.0); HEMATOCRIT. 36.6 % (36.0-48.0); HEMOGLOBIN. 11.8 g/dL (12.0-16.0); LYMPHOCYTES % 16.8 % (20.0-50.0); MEAN CORPUSCULAR HEMOGLOBIN 27.5 pg (28.0-32.0); MEAN CORPUSCULAR HGB CONC 32.3 g/dL (31.0-37.0); MEAN CORPUSCULAR VOLUME 85.2 fL (81.0-99.0); MEAN PLATELET VOLUME 8.9 fl (7.4-10.4); MONOCYTES % 6.6 % (2.0-8.0); PLATELET 188 x1000/uL (130-400); RED CELL DISTRIBUTION WIDTH 18.7 % (11.6-14.6); WHITE BLOOD COUNT 6.1 x1000/uL (4.5-11.0)
[2023-12-19 13:51] LABS: PARTIAL THROMBOPLASTIN TIME 36.7 sec (23.4-31.0); PROTHROMBIN TIME 20.9 sec (9.6-11.0)
[2023-12-19 13:59] LABS: ALANINE AMINOTRANSFERASE 30 IU/L (10-49); ALBUMIN 4.1 g/dL (3.2-4.8); ASPARTATE AMINOTRANSFERASE 38 IU/L (<34); BILIRUBIN TOTAL 0.5 mg/dL (0.1-1.0); CALCIUM 8.9 mg/dL (8.7-10.4); CARBON DIOXIDE 29 mEq/L (21-32); CHLORIDE 105 mEq/L (98-107); CREATININE 0.9 mg/dL (0.6-1.0); GLUCOSE 188 mg/dL (70-105); POTASSIUM 4.5 mEq/L (3.5-5.1); PROTEIN TOTAL 6.6 g/dL (6.0-8.3); SODIUM 138 mEq/L (136-145); TROPONIN I HIGH SENSITIVITY 6 ng/L (3.0-34); UREA NITROGEN BLOOD 16 mg/dL (9-23)
[2023-12-19 16:59] VITALS: BP 125/57; PULSE 68; RESP 17; TEMP 98.3
== END 2023-12-19 18:18 | disposition left against medical advice (07) ==
LOC: ER 12:11 → CANBEDREQ 15:47 → ER 18:18
DX: N93.9 Abnormal uterine and vaginal bleeding, unspecified (principal); R07.89 Other chest pain; I10 Essential (primary) hypertension; E78.00 Pure hypercholesterolemia, unspecified; E11.9 Type 2 diabetes mellitus without complications; Z79.4 Long term (current) use of insulin; Z79.899 Other long term (current) drug therapy
CPT/HCPCS: 36415; 71045; 76830; 76856; 80053; 84484; 85025; 93005; 99285

== ENCOUNTER 2024-01-24 09:14 | Inpatient (IN) | payer MEDICAID, OTHER ==
[~2024-01-24] VITALS: Ht 154.9 cm; Wt 81.6 kg
[2024-01-24 09:59] LABS: BASOPHILS % 0.3 % (0.0-2.0); HEMATOCRIT. 30.9 % (36.0-48.0); HEMOGLOBIN. 10.1 g/dL (12.0-16.0); MEAN CORPUSCULAR HEMOGLOBIN 27.8 pg (28.0-32.0); MEAN CORPUSCULAR HGB CONC 32.6 g/dL (31.0-37.0); MEAN CORPUSCULAR VOLUME 85.4 fL (81.0-99.0); MEAN PLATELET VOLUME 7.9 fl (7.4-10.4); MONOCYTES % 5.4 % (2.0-8.0); NEUTROPHILS % 79.3 % (40.0-76.0); PLATELET 274 x1000/uL (130-400); RED BLOOD CELL COUNT 3.62 mill/uL (4.2-5.4); RED CELL DISTRIBUTION WIDTH 16.9 % (11.6-14.6); WHITE BLOOD COUNT 5.5 x1000/uL (4.5-11.0)
[2024-01-24 10:09] LABS: PROTHROMBIN TIME 21.7 sec (9.6-11.0)
[2024-01-24 10:25] LABS: ALANINE AMINOTRANSFERASE 23 IU/L (10-49); ASPARTATE AMINOTRANSFERASE 21 IU/L (<34); BILIRUBIN TOTAL 0.5 mg/dL (0.1-1.0); CALCIUM 8.5 mg/dL (8.7-10.4); CARBON DIOXIDE 27 mEq/L (21-32); CHLORIDE 106 mEq/L (98-107); CREATININE 0.9 mg/dL (0.6-1.0); GLUCOSE 239 mg/dL (70-105); POTASSIUM 3.4 mEq/L (3.5-5.1); PROTEIN TOTAL 6.5 g/dL (6.0-8.3); SODIUM 140 mEq/L (136-145); UREA NITROGEN BLOOD 13 mg/dL (9-23)
[2024-01-24] MEDS: SODIUM CHLORIDE 0.9% 1,000 ML IV ONE (10:30)
[2024-01-24 16:59] VITALS: BP 125/60; PULSE 69; RESP 16; TEMP 97.6
[2024-01-24 17:01] VITALS: BP 125/60; PULSE 67; RESP 16; TEMP 97.6
[2024-01-24] MEDS ORDERED: SODIUM CHLORIDE 0.45% 250 ML IV ONE (19:15)
[2024-01-24] MEDS ORDERED: CLONIDINE 0.1MG TABLET PO PRN (19:15)
[2024-01-24] MEDS ORDERED: ONDANSETRON HCL 4MG/2ML INJ IV PRN (19:15)
[2024-01-24] MEDS ORDERED: DOCUSATE SODIUM 100MG CAPSULE PO PRN (19:15)
[2024-01-24] MEDS ORDERED: DEXTROSE 50% WATER 50ML SYRINGE IV PRN (19:15)
[2024-01-24] MEDS ORDERED: ACETAMINOPHEN 325MG TABLET PO PRN ×2 (19:15)
[2024-01-24] MEDS ORDERED: IPRATROPIUM/ALBUTEROL 0.5-3(2.5)MG/3ML NEB HHN PRN (19:15)
[2024-01-24 20:00] VITALS: BP 111/61; PULSE 67; RESP 16; TEMP 98.8
[2024-01-24] MEDS: ATORVASTATIN CALCIUM 40MG TABLET PO SCH (20:35)
[2024-01-24] MEDS: POTASSIUM CHLORIDE 20MEQ TABLET SR PO NR (20:35)
[2024-01-24] MEDS: TRAZODONE HCL 50MG TABLET PO PRN (20:41)
[2024-01-24] MEDS: CARVEDILOL 3.125 MG TABLET PO SCH (20:48)
[2024-01-24] MEDS ORDERED: SACU1TAB7 PO (20:57)
[2024-01-24] MEDS ORDERED: CLON1TAB12 PO (20:57)
[2024-01-24] MEDS: BLOOD SUGAR DIAGNOSTIC STRIP TEST SCH (21:00)
[2024-01-24] MEDS: INSULIN LISPRO 100 UNITS/ML SUBCUT SCH (21:33)
[2024-01-24 22:11] LABS: IRON 40 ug/dL (50-170); TOTAL IRON BINDING CAPACITY 387 ug/dl (250-425)
[2024-01-24 22:29] LABS: FERRITIN 22 ng/mL (10-291); FOLIC ACID (FOLATE) SERUM > 20.00 ng/mL (>5.38); VITAMIN B12 SERUM 711 pg/mL (211-911)
[2024-01-24] MEDS: WARFARIN SODIUM 2MG TABLET PO SCH (22:43)
[2024-01-25] VITALS: BP 117/60; PULSE 65; RESP 16; TEMP 98.7
[2024-01-25 04:00] VITALS: BP 112/62; PULSE 61; RESP 16; TEMP 98.8
[2024-01-25 06:07] LABS: PROTHROMBIN TIME 21.6 sec (9.6-11.0)
[2024-01-25 06:16] LABS: BASOPHILS % 0.4 % (0.0-2.0); EOSINOPHILS % 0.2 % (0.0-5.0); HEMATOCRIT. 29.6 % (36.0-48.0); HEMOGLOBIN. 9.9 g/dL (12.0-16.0); LYMPHOCYTES % 19.6 % (20.0-50.0); MEAN CORPUSCULAR HEMOGLOBIN 27.7 pg (28.0-32.0); MEAN CORPUSCULAR HGB CONC 33.6 g/dL (31.0-37.0); MEAN CORPUSCULAR VOLUME 82.5 fL (81.0-99.0); MEAN PLATELET VOLUME 8.4 fl (7.4-10.4); NEUTROPHILS % 71.8 % (40.0-76.0); PLATELET 260 x1000/uL (130-400); RED BLOOD CELL COUNT 3.58 mill/uL (4.2-5.4); RED CELL DISTRIBUTION WIDTH 16.8 % (11.6-14.6); WHITE BLOOD COUNT 6.8 x1000/uL (4.5-11.0)
[2024-01-25 06:36] LABS: CALCIUM 8.3 mg/dL (8.7-10.4); CARBON DIOXIDE 26 mEq/L (21-32); CHLORIDE 108 mEq/L (98-107); CREATININE 0.9 mg/dL (0.6-1.0); GLUCOSE 152 mg/dL (70-105); POTASSIUM 3.8 mEq/L (3.5-5.1); SODIUM 142 mEq/L (136-145); UREA NITROGEN BLOOD 11 mg/dL (9-23)
[2024-01-25 08:00] VITALS: BP 117/57; PULSE 80; RESP 18; TEMP 97.9
[2024-01-25] MEDS: FUROSEMIDE 40MG/4ML VIAL IVP SCH (09:10)
[2024-01-25] MEDS: PANTOPRAZOLE SODIUM 40 MG/VIAL IV SCH (09:10)
[2024-01-25 13:51] LABS: CLARITY URINE CLEAR (CLEAR); COLOR URINE YELLOW (YELLOW); GLUCOSE URINE NEGATIVE (NEGATIVE); KETONES URINE NEGATIVE (NEGATIVE); LEUKOCYTE ESTERASE URINE NEGATIVE (NEGATIVE); NITRITE URINE NEGATIVE (NEGATIVE); OCCULT BLOOD URINE 2+ (NEGATIVE); PROTEIN URINE NEGATIVE (NEGATIVE); SPECIFIC GRAVITY URINE 1.008 (1.005-1.030); UROBILINOGEN URINE 0.2 E.U./dL (0.2-1.0)
[2024-01-25 13:52] VITALS: BP 131/59; PULSE 78; TEMP 97.6; O2SAT 100
[2024-01-25 14:13] LABS: RBC URINE 15-25 /hpf (0-2); SQUAMOUS EPITHELIAL CELL URINE FEW /lpf (RARE/1+); WBC URINE 0-2 /hpf (0-2)
[2024-01-25 14:14] LABS: BACTERIA URINE FEW; YEAST URINE NONE SEEN
[2024-01-25 14:21] LABS: *AMPHETAMINES SCREEN URINE NEGATIVE (NEGATIVE); *BARBITURATES SCREEN URINE NEGATIVE (NEGATIVE); *BENZODIAZEPINES SCREEN URINE NEGATIVE (NEGATIVE); *COCAINE SCREEN URINE NEGATIVE (NEGATIVE); CANNABINOID URINE SCREEN NEGATIVE (NEGATIVE); ECSTASY MDMA SCREEN URINE NEGATIVE (NEGATIVE); METHADONE URINE SCREEN Neg (NEGATIVE); OPIATES URINE SCREEN NEGATIVE (NEGATIVE); PHENCYCLIDINE URINE SCREEN NEGATIVE (NEGATIVE)
== END 2024-01-25 14:45 | disposition home or self-care (01) | DRG 532 ==
LOC: ER 09:14 → 7WST 12:36 → EDBEDREQTM 12:37 → EDBEDREQ 12:37
PROVIDERS: ADMIT Internal Medicine; ATTEND Internal Medicine
DX: D25.9 Leiomyoma of uterus, unspecified (principal); D64.9 Anemia, unspecified; E11.9 Type 2 diabetes mellitus without complications; E78.00 Pure hypercholesterolemia, unspecified; E87.6 Hypokalemia; I10 Essential (primary) hypertension; N93.8 Other specified abnormal uterine and vaginal bleeding; I48.91 Unspecified atrial fibrillation; I25.10 Atherosclerotic heart disease of native coronary artery without angina pectoris; Z95.2 Presence of prosthetic heart valve; Z79.01 Long term (current) use of anticoagulants; Z87.01 Personal history of pneumonia (recurrent); Z95.0 Presence of cardiac pacemaker
CPT/HCPCS: 36415; 76830; 76856; 80048; 80053; 80305; 81003; 82607; 82728; 82746; 82962; 83036; 83540; 83550; 85025; 86850; 86900; 99285; C9113; J1815; J1940; J7030

== ENCOUNTER 2024-02-19 10:50 | Emergency (ER) | payer OTHER ==
[~2024-02-19] VITALS: Ht 157.5 cm; Wt 80.0 kg
[~2024-02-19 10:50] MED LIST changes: +CLON1TAB12 PO; -GLIP10TA3 PO; -LINA5TAB PO; -MECL-299 MT; -NORT50CA5 PO; -SACU1TAB4 MT; +SACU1TAB7 PO; -VALS160T2 PO
[2024-02-19 10:52] VITALS: O2SAT 97
[2024-02-19 11:59] LABS: CHLORIDE 110 mEq/L (98-107); POTASSIUM 3.8 mEq/L (3.5-5.1); SODIUM 140 mEq/L (136-145)
[2024-02-19 12:00] LABS: CARBON DIOXIDE 24 mEq/L (21-32)
[2024-02-19 12:01] LABS: CALCIUM 8.6 mg/dL (8.7-10.4)
[2024-02-19 12:05] LABS: CREATININE 0.9 mg/dL (0.6-1.0); GLUCOSE 215 mg/dL (70-105)
[2024-02-19 12:06] LABS: B-HCG QUANTITATIVE 3 mIU/mL (<3); UREA NITROGEN BLOOD 15 mg/dL (9-23)
[2024-02-19 12:07] LABS: ALANINE AMINOTRANSFERASE 25 IU/L (10-49); ALBUMIN 3.9 g/dL (3.2-4.8); ASPARTATE AMINOTRANSFERASE 22 IU/L (<34)
[2024-02-19 12:08] LABS: BILIRUBIN TOTAL 0.4 mg/dL (0.1-1.0); PROTEIN TOTAL 6.6 g/dL (6.0-8.3)
[2024-02-19 12:50] LABS: INR 3.6; PARTIAL THROMBOPLASTIN TIME 41.5 sec (23.4-31.0); PROTHROMBIN TIME 36.2 sec (9.6-11.0)
[2024-02-19 13:30] VITALS: TEMP 98.3
[2024-02-19 14:37] LABS: BASOPHILS % 0.5 % (0.0-2.0); EOSINOPHILS % 0.1 % (0.0-5.0); HEMATOCRIT. 29.2 % (36.0-48.0); HEMOGLOBIN. 9.4 g/dL (12.0-16.0); LYMPHOCYTES % 19.6 % (20.0-50.0); MEAN CORPUSCULAR HEMOGLOBIN 26.7 pg (28.0-32.0); MEAN CORPUSCULAR HGB CONC 32.3 g/dL (31.0-37.0); MEAN CORPUSCULAR VOLUME 82.6 fL (81.0-99.0); MEAN PLATELET VOLUME 8.2 fl (7.4-10.4); MONOCYTES % 9.4 % (2.0-8.0); NEUTROPHILS % 70.4 % (40.0-76.0); PLATELET 240 x1000/uL (130-400); RED BLOOD CELL COUNT 3.54 mill/uL (4.2-5.4); WHITE BLOOD COUNT 6.8 x1000/uL (4.5-11.0)
[2024-02-19 20:11] VITALS: BP 110/43; PULSE 82; RESP 16
[2024-02-20] MEDS ORDERED: MAGNESIUM/ALUMINUM HYDROXIDE/SIMETHICONE 30ML UDC PO PRN (12:00)
[2024-02-20] MEDS ORDERED: ONDANSETRON HCL 4MG/2ML INJ IV PRN (12:00)
[2024-02-20] MEDS ORDERED: DEXTROSE 50% WATER 50ML SYRINGE IV PRN (12:00)
[2024-02-20] MEDS ORDERED: ACETAMINOPHEN 325MG TABLET PO PRN ×2 (12:00)
[2024-02-20] MEDS ORDERED: BLOOD SUGAR DIAGNOSTIC STRIP TEST SCH (13:00)
[2024-02-20] MEDS ORDERED: INSULIN LISPRO 100 UNITS/ML SUBCUT SCH (13:20)
[2024-02-20] MEDS ORDERED: SODIUM CHLORIDE 0.9% INJ 3ML FLUSH IVF SCH (14:00)
[2024-02-20] MEDS ORDERED: CARVEDILOL 6.25 MG TABLET PO SCH (17:00)
[2024-02-20] MEDS ORDERED: ZOLPIDEM TARTRATE 5MG TABLET PO PRN (21:00)
[2024-02-20] MEDS ORDERED: ATORVASTATIN CALCIUM 20MG TABLET PO SCH (21:00)
[2024-02-20] MEDS ORDERED: INSULIN GLARGINE 100 UNITS/ML SUBCUT SCH (22:00)
[2024-02-21] MEDS ORDERED: FUROSEMIDE 40MG TABLET PO SCH (09:00)
== END 2024-02-19 22:58 | disposition short-term general hospital (02) ==
LOC: ER 10:50 → CANBEDREQ 02-20 18:04
DX: N93.9 Abnormal uterine and vaginal bleeding, unspecified (principal); E11.9 Type 2 diabetes mellitus without complications; E78.00 Pure hypercholesterolemia, unspecified; I10 Essential (primary) hypertension; Z87.01 Personal history of pneumonia (recurrent); Z79.899 Other long term (current) drug therapy
CPT/HCPCS: 80053; 84702; 85025; 85610; 85730; 86850; 86900; 86901; 36415; 76830; 76856; 99285; Z7610 ×2

== ENCOUNTER 2024-10-03 10:16 | Emergency (ER) | payer OTHER ==
[~2024-10-03] VITALS: Ht 165.1 cm; Wt 90.0 kg
[~2024-10-03 10:16] MED LIST changes: +IMIP50TA PO; -IMIP50TA7 PO
[2024-10-03 10:18] VITALS: O2SAT 98
[2024-10-03 11:17] LABS: POTASSIUM 4.1 mEq/L (3.5-5.1)
[2024-10-03 11:19] LABS: CALCIUM 9.5 mg/dL (8.7-10.4)
[2024-10-03 11:20] LABS: INR 3.1; PROTHROMBIN TIME 31.6 sec (9.6-11.0)
[2024-10-03 11:22] LABS: BASOPHILS % 0.2 % (0.0-2.0); EOSINOPHILS % 0.1 % (0.0-5.0); HEMATOCRIT. 41.3 % (36.0-48.0); HEMOGLOBIN. 13.1 g/dL (12.0-16.0); LYMPHOCYTES % 14.5 % (20.0-50.0); MEAN CORPUSCULAR HEMOGLOBIN 25.9 pg (28.0-32.0); MEAN CORPUSCULAR HGB CONC 31.8 g/dL (31.0-37.0); MEAN CORPUSCULAR VOLUME 81.6 fL (81.0-99.0); MEAN PLATELET VOLUME 8.6 fl (7.4-10.4); MONOCYTES % 7.1 % (2.0-8.0); NEUTROPHILS % 78.1 % (40.0-76.0); PLATELET 205 x1000/uL (130-400); RED BLOOD CELL COUNT 5.06 mill/uL (4.2-5.4); RED CELL DISTRIBUTION WIDTH 17.2 % (11.6-14.6); WHITE BLOOD COUNT 6.3 x1000/uL (4.5-11.0)
[2024-10-03] MEDS: SODIUM CHLORIDE 0.9% 500 ML IV ONE (11:38)
[2024-10-03 13:25] VITALS: BP 118/62; PULSE 63; RESP 21; TEMP 37.11408; O2SAT 98
== END 2024-10-03 13:30 | disposition home or self-care (01) ==
LOC: ER 10:16 → EDBEDREQ 10:59 → ER 13:30
DX: I95.2 Hypotension due to drugs (principal); E11.9 Type 2 diabetes mellitus without complications; I10 Essential (primary) hypertension; E78.00 Pure hypercholesterolemia, unspecified; Z20.822 Contact with and (suspected) exposure to COVID-19; Z79.899 Other long term (current) drug therapy; Z79.4 Long term (current) use of insulin
CPT/HCPCS: 80048; 83880; 85025; 85610; 36415; 71045; 93005; 96360; 99285; 87426; Z7610 ×3

== ENCOUNTER 2024-12-17 10:02 | Emergency (ER) | payer OTHER ==
[~2024-12-17] VITALS: Ht 165.1 cm; Wt 70.0 kg
[2024-12-17 10:03] VITALS: BP 107/45; PULSE 65; RESP 18; TEMP 36.7; O2SAT 97
[2024-12-17] MEDS: SODIUM CHLORIDE 0.9% 1,000 ML IV ONE (10:25)
[2024-12-17] MEDS: ONDANSETRON HCL 4MG/2ML INJ IV STA (10:29)
[2024-12-17 10:44] LABS: CHLORIDE 105 mEq/L (98-107); SODIUM 143 mEq/L (136-145)
[2024-12-17 10:45] LABS: CARBON DIOXIDE 29 mEq/L (21-32)
[2024-12-17 10:48] LABS: BASOPHILS % 0.3 % (0.0-2.0); EOSINOPHILS % 0.1 % (0.0-5.0); HEMATOCRIT. 40.5 % (36.0-48.0); HEMOGLOBIN. 12.8 g/dL (12.0-16.0); LYMPHOCYTES % 15.8 % (20.0-50.0); MEAN CORPUSCULAR HEMOGLOBIN 25.8 pg (28.0-32.0); MEAN CORPUSCULAR HGB CONC 31.7 g/dL (31.0-37.0); MEAN CORPUSCULAR VOLUME 81.5 fL (81.0-99.0); MEAN PLATELET VOLUME 8.5 fl (7.4-10.4); MONOCYTES % 7.3 % (2.0-8.0); NEUTROPHILS % 76.5 % (40.0-76.0); PLATELET 210 x1000/uL (130-400); RED BLOOD CELL COUNT 4.97 mill/uL (4.2-5.4); RED CELL DISTRIBUTION WIDTH 17.3 % (11.6-14.6); WHITE BLOOD COUNT 5.8 x1000/uL (4.5-11.0)
[2024-12-17 10:51] LABS: GLUCOSE 151 mg/dL (70-105); UREA NITROGEN BLOOD 15 mg/dL (9-23)
[2024-12-17 10:52] LABS: TROPONIN I HIGH SENSITIVITY 6 ng/L (3.0-34)
[2024-12-17 11:05] LABS: INR 2.5; PROTHROMBIN TIME 26.1 sec (9.6-11.0)
[2024-12-17] MEDS ORDERED: ONDA4TAB50 PO (12:14)
== END 2024-12-17 11:38 | disposition home or self-care (01) ==
LOC: ER 10:02
DX: R11.2 Nausea with vomiting, unspecified (principal); E11.9 Type 2 diabetes mellitus without complications; E78.00 Pure hypercholesterolemia, unspecified; I11.9 Hypertensive heart disease without heart failure; Z79.4 Long term (current) use of insulin; Z79.899 Other long term (current) drug therapy; Z95.0 Presence of cardiac pacemaker
CPT/HCPCS: 80048; 83880; 85025; 85610; 84484; 36415; 71045; 96361; 96374; 99284; J2405; J7030; Z7610